=== PATIENT | female | born 1995 ===

== ENCOUNTER 2016-09-23 11:08 | Inpatient (IN) | payer OTHER ==
--- NOTE | 2016-09-23 11:26 | CP.PCM.HP ---
<Merritt Haynes - Last Filed: 09/23/16 12:25> History of Present Illness - History of Present Illness History of Present Illness: HPI: Patient is a 21 year old female, with PMHx of previous abscess in left axilla ( 2016), who presents to [facility] ED for new abscess formation. Patient saw Dr. Cifuentes at his office this AM and was instructed to come to [facility] for removal today. She admits she noticed both abscesses last week, when they began to collect and become painful. One is located in her left groin, and the other is on the back of her left leg. She admits to pain, swelling, and drainage from the sites. She was prescribed Augmentin, which she started yesterday. She denies fever, chills, abdominal pain, N/V. PMHx: left axilla abscess PSHx: I& D of left axilla abscess (2016) Allergies: denies Fam Hx: Mother - DM, HTN SHx: denies tobacco or illicit drug use, admits occasional social alcohol use; lives with parents Present on Admission - Present on Admission Any Indicators Present on Admission: No Review of Systems - Constitutional Constitutional: absent: Chills, Fever - EENT Eyes: absent: Change in Vision Ears: absent: Decreased Hearing - Cardiovascular Cardiovascular: absent: Chest Pain, Dyspnea - Respiratory Respiratory: absent: Cough - Gastrointestinal Gastrointestinal: absent: Abdominal Pain, Nausea, Vomiting - Genitourinary Genitourinary: absent: Dysuria - Integumentary Integumentary: Erythema, Skin Ulcer (two abscesses; one in left groin, other on back of left leg) - Neurological Neurological: absent: Numbness, Tingling, Weakness Meds Allergies/Adverse Reactions: Allergies Allergy/AdvReac Type Severity Reaction Status Date / Time No Known Allergies Allergy Verified 09/23/16 11:29 Physical Exam - Constitutional Appears: Non-toxic, No Acute Distress - Head Exam Head Exam: ATRAUMATIC, NORMAL INSPECTION, NORMOCEPHALIC - Eye Exam Eye Exam: EOMI Pupil Exam: PERRL - ENT Exam ENT Exam: Mucous Membranes Moist - Neck Exam Neck exam: Positive for: Full Rom - Respiratory Exam Respiratory Exam: Clear to Auscultation Bilateral, NORMAL BREATHING PATTERN - Cardiovascular Exam Cardiovascular Exam: REGULAR RHYTHM, +S1, +S2 - GI/Abdominal Exam GI & Abdominal Exam: Normal Bowel Sounds, Soft. absent: Tenderness - Extremities Exam Extremities exam: Negative for: normal inspection, tenderness Additional comments: Abscess noted in left groin, and back of left leg - Back Exam Back exam: absent: CVA tenderness (L), CVA tenderness (R) - Neurological Exam Neurological exam: Alert, Oriented x3 - Psychiatric Exam Psychiatric exam: Normal Affect, Normal Mood - Skin Skin Exam: Normal Color, Warm Results - Labs Result Diagrams: 09/23/16 11:51 09/23/16 11:51 Assessment & Plan - Assessment and Plan (Free Text) Assessment: 21 yo female with PMHx of previous left axillary abscess, presenting for new abscesses in left groin and back of left leg. Plan: Plan: - Pre-op labs - I& D in OR today with Dr. Cifuentes d/w Dr. Vane Haynes, PGY-1 <Sonny Cifuentes B - Last Filed: 09/23/16 21:10> Results - Vital Signs Recent Vital Signs: Last Vital Signs Temp 97.4 F L 09/23/16 19:00 Pulse 79 09/23/16 19:00 Resp 18 09/23/16 19:00 BP 90/63 L 09/23/16 19:00 Pulse Ox 100 09/23/16 19:00 - Labs Result Diagrams: 09/23/16 11:51 09/23/16 11:51 Attending/Attestation - Attestation I have personally seen and examined this patient.: Yes I have fully participated in the care of the patient.: Yes I have reviewed all pertinent clinical information: Yes Notes (Text): 09/23/16 21:08 Pt was seen and examined at bedside on 09/23/16 Agree with above note and assessment Pt with Left groin/inguinal abscess and cellulitis and Left post upper thigh abscess NPO, IVF Consent OR for I & D of Left inguinal abscess and Left thigh abscess Plan d.w pt in detail Risk and benefit explained in detail.
--- NOTE | 2016-09-23 11:56 | C.PDOC ---
History Of Present Illness 21 year old patient is sent to the ER by surgeon for an evaluation of abscess. Patient reports she has an infection to her left leg. She was sent to the ED for admission for drainage of the abscess. The surgical team is at bedside upon patient's arrival. Patient will be taken to the OR. Pre-op labs are requested. Patient denies fever or any other complaints at this time. Time Seen by Provider: 09/23/16 11:25 Chief Complaint (Nursing): Abnormal Skin Integrity History Per: Patient History/Exam Limitations: no limitations Onset/Duration Of Symptoms: Other Current Symptoms Are (Timing): Still Present Quality Of Symptoms: Painful, Other Severity: Mild Pain Scale Rating Of: 3 Recent travel outside of the [place]: No Past Medical History Reviewed: Historical Data, Nursing Documentation, Vital Signs Vital Signs: Last Vital Signs Temp 98.8 F 09/23/16 11:25 Pulse 78 09/23/16 12:33 Resp 15 09/23/16 12:33 BP 126/68 09/23/16 12:33 Pulse Ox 100 09/23/16 12:33 Family History: States: Unknown Family Hx - Social History Hx Alcohol Use: Yes Hx Substance Use: No - Immunization History Hx Tetanus Toxoid Vaccination: No Hx Influenza Vaccination: Yes Hx Pneumococcal Vaccination: No Review Of Systems Except As Marked, All Systems Reviewed And Found Negative. Constitutional: Negative for: Fever Skin: Positive for: Other (abscess to left leg) Physical Exam - Physical Exam Appears: Non-toxic, No Acute Distress Skin: Warm, Dry Head: Atraumatic, Normacephalic, Other (left upper leg swelling and erythema with induration and fluctuance) Neck: Normal ROM, Supple Chest: Symmetrical Cardiovascular: Rhythm Regular (tachycardic) Respiratory: Normal Breath Sounds, No Rales, No Rhonchi, No Wheezing Back: Normal Inspection Extremity: Normal ROM Neurological/Psych: Oriented x3, Normal Motor, Normal Sensation Gait: Steady ED Course And Treatment - Laboratory Results Result Diagrams: 09/23/16 11:51 09/23/16 11:51 O2 Sat by Pulse Oximetry: 96 (room air) Pulse Ox Interpretation: Normal Medical Decision Making Medical Decision Making: Impression: 21 y/o female with an abscess to upper left extremity Plan: * Labs Disposition - Disposition Disposition: HOSPITALIZED Disposition Time: 12:59 Condition: STABLE - Clinical Impression Clinical Impression: Abscess - Scribe Statement The provider has reviewed the documentation as recorded by the Scribe Indu Shen Provider Attestation: All medical record entries made by the Scribe were at my direction and personally dictated by me. I have reviewed the chart and agree that the record accurately reflects my personal performance of the history, physical exam, medical decision making, and the department course for this patient. I have also personally directed, reviewed, and agree with the discharge instructions and disposition.
[2016-09-23 11:58] LABS: BASO % 0.4 % (0.0-2.0); EOS # 0.2 K/uL (0.0-0.7); EOS % 1.3 % (0.0-4.0); HEMATOCRIT 36.2 % (34.0-47.0); LYMPH # 1.8 K/uL (1.0-4.3); LYMPH % 14.4 % (20.0-40.0); MEAN CELL VOLUME 89.9 fL (81.0-99.0); MEAN CORPUSCULAR HEMOGLOBIN 30.8 pg (27.0-31.0); MEAN CORPUSCULAR HGB CONC 34.2 g/dL (33.0-37.0); MEAN PLATELET VOLUME 7.6 fL (7.2-11.7); MONO # 0.9 K/uL (0.0-0.8); RED CELL DISTRIBUTION WIDTH 12.2 % (11.5-14.5); WHITE BLOOD COUNT 12.5 K/uL (4.8-10.8)
[2016-09-23 12:05] LABS: INR 1.2
[2016-09-23 12:08] LABS: CHLORIDE 97 mmol/L (98-107); POTASSIUM 4.3 mmol/L (3.6-5.2); SODIUM 138 mmol/L (132-148)
[2016-09-23 12:10] LABS: BILIRUBIN,TOTAL 0.8 mg/dL (0.2-1.3); GFR AFRICAN-AMERICAN > 60
[2016-09-23 12:11] LABS: ALB/GLOB RATIO 1.2 (1.0-2.1); ALKALINE PHOSPHATASE 59 U/L (38-126); ALT/SGPT 20 U/L (9-52); AST/SGOT 24 U/L (14-36); BLOOD UREA NITROGEN 14 mg/dL (7-17); CARBON DIOXIDE 27 mmol/L (22-30); GLUCOSE,RANDOM 112 mg/dL (65-105); TOTAL PROTEIN 8.4 g/dL (6.3-8.3)
[2016-09-23] MEDS ORDERED: Bupivacaine/Epi 0.25%-1:200,000 10 ml PF inj IJ ONE (13:58)
[2016-09-23] MEDS ORDERED: Lidocaine 1% Inj (20ml) ONE (13:58)
[2016-09-23] MEDS ORDERED: ceFAZolin IV 1 gm in Dextrose 0 GM/0 ML BAG IVPB ONE (13:58)
[2016-09-23] MEDS ORDERED: Vancomycin 1 gm/D5W 200 ml 1 GM/200 ML BAG IVPB ONE (14:01)
[2016-09-23] MEDS ORDERED: Lactated Ringer's 1,000 ML IV ONE ×2 (14:03)
[2016-09-23] MEDS ORDERED: Propofol 10 mg/ml Inj (20 ML) ONE (14:04)
[2016-09-23] MEDS ORDERED: Midazolam 2 MG/2 ML VIAL ONE (14:04)
[2016-09-23] MEDS ORDERED: Lidocaine Hydrochloride 5 ML INJ ONE (14:09)
[2016-09-23] MEDS: Piperacillin/Tazobact 3.375 gm 100 ML IVPB ONE ×2 (14:34→14:45)
[2016-09-23] MEDS ORDERED: HYDROmorphone 0.5 mg/0.5 ml ISec IVP PRN (14:47)
--- NOTE | 2016-09-23 15:03 | PCM.SURG1 ---
Surgeon's Initial Post Op Note - Surgeon's Notes Surgeon: Vane Supervisor Filling And Packing: Nena PGY2 Type of Anesthesia: General LMA Pre-Operative Diagnosis: L thigh and groin abscess Operative Findings: same Post-Operative Diagnosis: same Operation Performed: Incision and Drainange of abscess Specimen/Specimens Removed: cultures Estimated Blood Loss: EBL {In ML}: 20 Blood Products Given: N/A Drains Used: No Drains Post-Op Condition: Good Date of Surgery/Procedure: 09/23/16 Time of Surgery/Procedure: 15:03
[2016-09-23] MEDS ORDERED: Sodium Chloride 0.9% 1,000 ML IV SCH (15:15)
[2016-09-23] MEDS ORDERED: HYDROmorphone 0.5 mg/0.5 ml ISec IVP ONE (16:05)
--- NOTE | 2016-09-23 19:31 | OP ---
PROCEDURE DATE: 09/23/2016 PREOPERATIVE DIAGNOSIS: Left groin abscess and left upper posterior thigh abscess. POSTOPERATIVE DIAGNOSIS: Left groin abscess and left upper posterior thigh abscess. PROCEDURE DONE: 1. Incision and drainage of left inguinal region abscess. 2. Excision and debridement of left inguinal abscess wound. 3. Incision and drainage of left posterior upper thigh abscess. 4. Excision and debridement of left Posterior upper thigh wound. SURGEON: Sonny Cifuentes MD. FIELD SCOUT: Serjio Barrett MD ANESTHESIA: General anesthesia with LMA. ESTIMATED BLOOD LOSS: Around 10 mL. DRAINS: None. PATHOLOGY: Pus was sent for the culture and sensitivity from the left inguinal as well as the left thigh abscess and debrided tissue was also sent from the left inguinal abscess wound. INTRAOPERATIVE FINDINGS: The patient had approximately 4 x 5 cm abscess of the left inguinal area with extensive cellulitis and the patient had approximately 3 x 4 cm left upper thigh posterior abscess with necrotic tissue. INTRAOPERATIVE STEPS: This 21-year-old female who was diagnosed with left inguinal area cellulitis and abscess as well as the left posterior upper thigh abscess and patient was consented for incision and drainage and patient was brought to the OR, placed supine on the operating table. After induction of the anesthesia, the patient's leg was placed in a frog leg position and the left inguinal area as well as the left upper posterior medial thigh was prepped and draped in the usual sterile fashion. First, a transverse incision was made of approximately 4 cm in the left inguinal area and approximately 20 mL of pus was drained and the abscess cavity was debrided and all the debrided tissue was sent for pathology. The debridement was done with a knife and the cautery as well as blunt debridement and after proper hemostasis, the left posterior upper thigh incision was made and approximately 10 mL of pus was drained and the pus was sent for culture and sensitivity. The wound was debrided and necrotic tissue was sent for the pathology. After proper hemostasis, the wound was also packed with iodoform packing and dry sterile dressing was applied. Left inguinal wound was also packed with iodoform packing and after proper hemostasis , the dry sterile dressing was applied. The patient tolerated the procedure well. Count of instruments and gauze was correct. There was no apparent complication. Sonny Cifuentes MD cc: [id number] TT: 09/23/2016 19:31:05 jn ARIANE
[2016-09-23] MEDS: Oxycodone/Acetaminophen 5/325 mg Tab PO PRN (21:00)
[2016-09-23] MEDS: Piperacillin/Tazobact 3.375 GM in Sodium Chloride 100 ML IVPB SCH (21:41)
[2016-09-24] MEDS: Vancomycin 1 gm/NS 200 ml 1 GM/200 ML BAG IVPB SCH ×2 (01:03→13:09)
[2016-09-24 02:23] VITALS: RESP 20; O2SAT 98
[2016-09-24] MEDS: Piperacillin/Tazobact 3.375 GM in Sodium Chloride 100 ML IVPB SCH ×3 (03:45→14:56)
[2016-09-24] MEDS: Oxycodone/Acetaminophen 5/325 mg Tab PO PRN ×2 (04:04→11:16)
[2016-09-24] MEDS ORDERED: Morphine 4 MG/ML VIAL IVP STA (06:19)
[2016-09-24 07:26] LABS: HEMATOCRIT 32.6 % (34.0-47.0); MEAN CELL VOLUME 90.4 fL (81.0-99.0); MEAN CORPUSCULAR HEMOGLOBIN 30.6 pg (27.0-31.0); MEAN CORPUSCULAR HGB CONC 33.9 g/dL (33.0-37.0); MEAN PLATELET VOLUME 7.7 fL (7.2-11.7); RED CELL DISTRIBUTION WIDTH 12.3 % (11.5-14.5)
[2016-09-24 08:07] VITALS: BP 98/66; PULSE 91; TEMP 97.6
--- NOTE | 2016-09-24 10:17 | CP.PCM.PN ---
Objective - Vital Signs/Intake and Output Vital Signs (last 24 hours): Temp Pulse Resp BP Pulse Ox 97.6 F 91 H 20 98/66 L 98 09/24/16 08:02 09/24/16 08:02 09/24/16 08:02 09/24/16 08:02 09/24/16 08:02 - Medications Medications: Current Medications Acetaminophen (Tylenol 325mg Tab) 650 mg PO Q6 PRN PRN Reason: Fever >100.4 F Piperacillin Sod/Tazobactam (Sod 3.375 gm/ Sodium Chloride) 100 mls @ 200 mls/ hr IVPB Q6H [facility] Last Admin: 09/24/16 09:22 Dose: 200 mls/hr Vancomycin/Sodium Chloride (Vancocin) 1 gm in 200 mls @ 133.333 mls/hr IVPB Q12H [facility] Stop: 09/29/16 02:01 Last Admin: 09/24/16 01:03 Dose: 133.333 mls/hr Ondansetron HCl (Zofran Inj) 4 mg IVP Q4 PRN PRN Reason: Nausea/Vomiting Oxycodone/Acetaminophen (Percocet 5/325 Mg Tab) 1 tab PO Q6H PRN PRN Reason: Pain, moderate (4-7) Stop: 09/26/16 15:10 Last Admin: 09/24/16 04:04 Dose: 1 tab - Labs Labs: 09/24/16 07:09 PT 13.6 SECONDS (9.7-12.2) H 09/23/16 11:51 INR 1.2 09/23/16 11:51 APTT 29 SECONDS (21-34) 09/23/16 11:51
--- NOTE | 2016-09-24 10:55 | CP.PCM.PCO ---
Physician Communication Note - Physician Communication Note Physician Communication Note: Plan for D/C pending ID input on out pt abx
--- NOTE | 2016-09-24 12:04 | CP.PCM.CON ---
History of Present Illness - History of Present Illness History of Present Illness: 21 year old female, with PMHx of previous abscess in left axilla (2016), who presents to [facility] ED for new abscess formation. Patient saw Dr. Cifuentes at his office this AM and was instructed to come to [facility] for removal today. She admits she noticed both abscesses last week, when they began to collect and become painful. One is located in her left groin, and the other is on the back of her left leg. She admits to pain, swelling, and drainage from the sites. She was prescribed Augmentin, but failed out pt rx PMHx: left axilla abscess PSHx: I& D of left axilla abscess (2016) Allergies: denies Fam Hx: Mother - DM, HTN SHx: denies tobacco or illicit drug use, admits occasional social alcohol use; lives with parents Review of Systems - Constitutional Constitutional: absent: As Per HPI, Anorexia, Chills, Daytime Sleepiness, Excessive Sweating, Fatigue, Fever, Frequent Falls, Headache, Increased Appetite , Lethargy, Malaise, Night Sweats, Snoring, Sleep Apnea, Weight Gain, Weight Loss, Weakness, Other - EENT Eyes: absent: As Per HPI, Blind Spots, Blurred Vision, Change in Vision, Decreased Night Vision, Diplopia, Discharge, Dry Eye, Exophthalmos, Floaters, Irritation, Itchy Eyes, Loss of Peripheral Vision, Pain, Photophobia, Requires Corrective Lenses, Sees Flashes, Spots in Vision, Tunnel Vision, Other Visual Disturbances, Loss of Vision, Other Ears: absent: As Per HPI, Decreased Hearing, Ear Discharge, Ear Pain, Tinnitus, Abnormal Hearing, Disequilibrium, Dizziness, Other Nose/Mouth/Throat: absent: As Per HPI, Epistaxis, Nasal Congestion, Nasal Discharge, Nasal Obstruction, Nasal Trauma, Nose Pain, Post Nasal Drip, Sinus Pain, Sinus Pressure, Bleeding Gums, Change in Voice, Dental Pain, Dry Mouth, Dysphagia, Halitosis, Hoarsness, Lip Swelling, Mouth Lesions, Mouth Pain, Odynophagia, Sore Throat, Throat Swelling, Tongue Swelling, Facial Pain, Neck Pain, Neck Mass, Other - Cardiovascular Cardiovascular: absent: As Per HPI, Acrocyanosis, Chest Pain, Chest Pain at Rest , Chest Pain with Activity, Claudication, Diaphoresis, Dyspnea, Dyspnea on Exertion, Edema, Irregular Heart Rhythm, Pain Radiating to Arm/Neck/Jaw, Leg Edema, Leg Ulcers, Lightheadedness, Orthopnea, Palpitations, Paroxysmal Nocturnal Dyspnea, Pedal Edema, Radiating Pain, Rapid Heart Rate, Slow Heart Rate, Syncope, Other - Respiratory Respiratory: absent: As Per HPI, Cough, Dyspnea, Hemoptysis, Dyspnea on Exertion , Wheezing, Snoring, Stridor, Pain on Inspiration, Chest Congestion, Excessive Mucous Production, Change in Mucous Color, Pain with Coughing, Other - Gastrointestinal Gastrointestinal: absent: As Per HPI, Abdominal Pain, Belching, Bloating, Change in Bowel Habits, Change in Stool Character, Coffee Ground Emesis, Constipation, Cramping, Diarrhea, Dyspepsia, Dysphagia, Early Satiety, Excessive Flatus, Fecal Incontinence, Heartburn, Hematemesis, Hematochezia, Loose Stools, Melena, Nausea, Odynophagia, Temesmus, Vomiting, Other - Genitourinary Genitourinary: absent: As Per HPI, Change in Urinary Stream, Difficulty Urinating, Dysuria, Flank Pain, Hematuria, Pyuria, Nocturia, Urinary Incontinence, Urinary Frequency, Urinary Hesitance, Urinary Urgency, Voiding Freq/Small Amts, Freq UTI, Hx Renal/Bladder Calculi, Hx /Renal Surgery, Bladder Distension, Other - Reproductive: Female Reproductive:Female: absent: As Per HPI, Amenorrhea, Amenorrhea/ Control, Currently Menstual, Cycle <21 Days, Cycle >35 Days, Cycle Variable, Menses 1-7 Days, Menses >/= 8 Days, Menses Variable, Cycle > 4 Weeks Between, No Menses for 6 Months, Heavy Menses, Light Menses, Normal Menses, Spotting Between Cycles , S/P Hysterectomy, Menopausal, Post Menopausal, Premenarche, Abnormal Vaginal Bleeding, Dysmenorrhea, Dyspareunia, Genital Lesions, Genital Pruritis, Pelvic Pain, Prolapse Symptoms, Sexual Dysfunction, Vaginal Discharge, Vaginal Dryness , Vaginal Odor, Vaginal Pruritis, Other - Menstruation Menstruation: absent: As Per HPI, Amenorrhea, Amenorrhea/ Control, Currently Menstual, Cycle <21 Days, Cycle >35 Days, Cycle Variable, Menses 1-7 Days, Menses >/= 8 Days, Menses Variable, Cycle > 4 Weeks Between, No Menses for 6 Months, Heavy Menses, Light Menses, Normal Menses, Spotting Between Cycles , S/P Hysterectomy, Menopausal, Post Menopausal, Premenarche, Abnormal Vaginal Bleeding, Dysmenorrhea, Other - Musculoskeletal Musculoskeletal: absent: As Per HPI, Abnormal Gait, Arthralgias, Atrophy, Back Pain, Deformity, Joint Swelling, Limited Range of Motion, Loss of Height, Muscle Cramps, Muscle Weakness, Myalgias, Neck Pain, Numbness, Radiating Pain into Limb, Stiffness, Tingling, Other - Integumentary Integumentary: As Per HPI - Neurological Neurological: absent: As Per HPI, Abnormal Gait, Abnormal Hearing, Abnormal Movements, Abnormal Speech, Behavioral Changes, Burning Sensations, Confusion, Convulsions, Disequilibrium, Dizziness, Numbness, Focal Weakness, Frequent Falls , Headaches, Lack of Coordination, Loss of Vision, Memory Loss, Paresthesias, Radicular Pain, Restless Legs, Sensory Deficit, Syncope, Tingling, Tremor, Vertigo, Weakness, Other Visual Disturbances, Other - Psychiatric Psychiatric: absent: As Per HPI, Abnormal Sleep Pattern, Anhedonia, Anxiety, Auditory Hallucinations, Behavioral Changes, Change in Appetite, Change in Libido, Confusion, Depression, Difficulty Concentrating, Hallucinations, Homicidal Ideation, Hopelessness, Irritability, Memory Loss, Mood Swings, Panic Attacks, Paranoia, Suicidal Ideation, Visual Hallucinations, Tactile Hallucinations, Other - Endocrine Endocrine: absent: As Per HPI, Change in Body Appearance, Change in Libido, Cold Intolorance, Deepening of Voice, Excessive Sweating, Fatigue, Flushing, Heat Intolorance, Increase in Ring/Shoe/Hat Size, Palpitations, Polydipsia, Polyphagia, Polyuria, Other - Hematologic/Lymphatic Hematologic: absent: As Per HPI, Easy Bleeding, Easy Bruising, Lymphadenopathy, Other Past Patient History - Past Medical History & Family History Past Medical History?: No - Past Social History Smoking Status: Never Smoked - MUSCULOSKELETAL/RHEUMATOLOGICAL Hx Falls: No - PSYCHIATRIC Hx Substance Use: No - SURGICAL HISTORY Hx Surgeries: No - ANESTHESIA Hx Anesthesia: Yes Hx Anesthesia Reactions: No Meds Allergies/Adverse Reactions: Allergies Allergy/AdvReac Type Severity Reaction Status Date / Time No Known Allergies Allergy Verified 09/23/16 11:29 - Medications Medications: Current Medications Acetaminophen (Tylenol 325mg Tab) 650 mg PO Q6 PRN PRN Reason: Fever >100.4 F Piperacillin Sod/Tazobactam (Sod 3.375 gm/ Sodium Chloride) 100 mls @ 200 mls/ hr IVPB [facility]H [facility] Last Admin: 09/24/16 09:22 Dose: 200 mls/hr Vancomycin/Sodium Chloride (Vancocin) 1 gm in 200 mls @ 133.333 mls/hr IVPB Q12H [facility] Stop: 09/29/16 02:01 Last Admin: 09/24/16 01:03 Dose: 133.333 mls/hr Ondansetron HCl (Zofran Inj) 4 mg IVP Q4 PRN PRN Reason: Nausea/Vomiting Oxycodone/Acetaminophen (Percocet 5/325 Mg Tab) 1 tab PO Q6H PRN PRN Reason: Pain, moderate (4-7) Stop: 09/26/16 15:10 Last Admin: 09/24/16 11:16 Dose: 1 tab Physical Exam - Constitutional Appears: Non-toxic, Chronically Ill - Head Exam Head Exam: NORMOCEPHALIC - Eye Exam Eye Exam: PERRL. absent: Scleral icterus - ENT Exam ENT Exam: Mucous Membranes Dry, Normal External Ear Exam - Neck Exam Neck exam: Negative for: Lymphadenopathy - Respiratory Exam Respiratory Exam: Decreased Breath Sounds, Clear to Auscultation Bilateral - Cardiovascular Exam Cardiovascular Exam: REGULAR RHYTHM, +S1, +S2 - GI/Abdominal Exam GI & Abdominal Exam: Diminished Bowel Sounds, Soft. absent: Tenderness - Rectal Exam Rectal Exam: Deferred - Exam Exam: NORMAL INSPECTION - Extremities Exam Extremities exam: Positive for: pedal pulses present. Negative for: calf tenderness, pedal edema, tenderness - Back Exam Back exam: absent: CVA tenderness (L), CVA tenderness (R), paraspinal tenderness - Neurological Exam Neurological exam: Alert, CN II-XII Intact, Oriented x3, Reflexes Normal - Psychiatric Exam Psychiatric exam: Normal Mood - Skin Skin Exam: Dry Additional comments: multiple lesions left axilla, left thigh and groin Tender warm drains in place Results - Vital Signs Recent Vital Signs: Last Vital Signs Temp 97.6 F 09/24/16 08:02 Pulse 91 H 09/24/16 08:02 Resp 20 09/24/16 08:02 BP 98/66 L 09/24/16 08:02 Pulse Ox 98 09/24/16 08:02 - Labs Result Diagrams: 09/24/16 07:09 09/23/16 11:51 Labs: Laboratory Results - last 24 hr 09/24/16 07:09 WBC 12.0 H RBC 3.61 L Hgb 11.1 Hct 32.6 L MCV 90.4 MCH 30.6 MCHC 33.9 RDW 12.3 Plt Count 290 MPV 7.7 Assessment & Plan (1) Abscess Status: Acute - Assessment and Plan (Free Text) Assessment: 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
--- NOTE | 2016-09-24 15:19 | CP.PCM.DIS ---
Provider - Provider Date of Admission: 09/23/16 15:31 Attending physician: Sonny Cifuentes MD Consults: Dr. Duncan, Infectious Disease Time Spent in preparation of Discharge (in minutes): 30 Diagnosis - Discharge Diagnosis (1) Abscess Status: Acute Hospital Course - Lab Results Lab Results: Micro Results 09/23/16 Unknown Groin Gram Stain - Final 09/23/16 Unknown Groin Wound Culture - Preliminary Staphylococcus Aureus 09/23/16 Unknown Thigh - Left Gram Stain - Final 09/23/16 Unknown Thigh - Left Wound Culture - Preliminary Staphylococcus Aureus Most Recent Lab Values WBC 12.0 K/uL (4.8-10.8) H 09/24/16 07:09 RBC 3.61 Mil/uL (3.80-5.20) L 09/24/16 07:09 Hgb 11.1 g/dL (11.0-16.0) 09/24/16 07:09 Hct 32.6 % (34.0-47.0) L 09/24/16 07:09 MCV 90.4 fL (81.0-99.0) 09/24/16 07:09 MCH 30.6 pg (27.0-31.0) 09/24/16 07:09 MCHC 33.9 g/dL (33.0-37.0) 09/24/16 07:09 RDW 12.3 % (11.5-14.5) 09/24/16 07:09 Plt Count 290 K/uL (130-400) 09/24/16 07:09 MPV 7.7 fL (7.2-11.7) 09/24/16 07:09 Neut % (Auto) 76.9 % (50.0-75.0) H 09/23/16 11:51 Lymph % (Auto) 14.4 % (20.0-40.0) L 09/23/16 11:51 Posey % (Auto) 7.0 % (0.0-10.0) 09/23/16 11:51 Eos % (Auto) 1.3 % (0.0-4.0) 09/23/16 11:51 Baso % (Auto) 0.4 % (0.0-2.0) 09/23/16 11:51 Neut # 9.6 K/uL (1.8-7.0) H 09/23/16 11:51 Lymph # 1.8 K/uL (1.0-4.3) 09/23/16 11:51 Posey # 0.9 K/uL (0.0-0.8) H 09/23/16 11:51 Eos # 0.2 K/uL (0.0-0.7) 09/23/16 11:51 Baso # 0.0 K/uL (0.0-0.2) 09/23/16 11:51 PT 13.6 SECONDS (9.7-12.2) H 09/23/16 11:51 INR 1.2 09/23/16 11:51 APTT 29 SECONDS (21-34) 09/23/16 11:51 Sodium 138 mmol/L (132-148) 09/23/16 11:51 Potassium 4.3 mmol/L (3.6-5.2) 09/23/16 11:51 Chloride 97 mmol/L (98-107) L 09/23/16 11:51 Carbon Dioxide 27 mmol/L (22-30) 09/23/16 11:51 Anion Gap 17 (10-20) 09/23/16 11:51 BUN 14 mg/dL (7-17) 09/23/16 11:51 Creatinine 0.6 MG/DL (0.7-1.2) L 09/23/16 11:51 Est GFR ( Amer) > 60 09/23/16 11:51 Est GFR (Non-Af Amer) > 60 09/23/16 11:51 Random Glucose 112 mg/dL (65-105) H 09/23/16 11:51 Calcium 9.0 mg/dl (8.6-10.4) 09/23/16 11:51 Total Bilirubin 0.8 mg/dL (0.2-1.3) 09/23/16 11:51 AST 24 U/L (14-36) 09/23/16 11:51 ALT 20 U/L (9-52) 09/23/16 11:51 Alkaline Phosphatase 59 U/L (38-126) 09/23/16 11:51 Total Protein 8.4 g/dL (6.3-8.3) H 09/23/16 11:51 Albumin 4.5 g/dL (3.5-5.0) 09/23/16 11:51 Globulin 3.9 gm/dL (2.2-3.9) 09/23/16 11:51 Albumin/Globulin Ratio 1.2 (1.0-2.1) 09/23/16 11:51 Urine HCG, Qual Negative (NEGATIVE) 09/23/16 12:32 Blood Type B POSITIVE 09/23/16 11:51 Antibody Screen Positive 09/23/16 11:51 Antibody Identification Non Specific Antibody 09/23/16 11:51 - Hospital Course Hospital Course: 21F presented to ED w. abscess to L groin and posterior L thigh. Pt went to OR for ID and was started on IV abx. Post-op pt did well. WBC trending down. Pain controlled. No F/C. Clear for D/C from surgical standpoint. Discharge Exam - Head Exam Head Exam: ATRAUMATIC, NORMOCEPHALIC - Eye Exam Eye Exam: EOMI. absent: Scleral icterus - ENT Exam ENT Exam: Mucous Membranes Moist, Normal External Ear Exam - Neck Exam Neck exam: Full Rom - Respiratory Exam Respiratory Exam: NORMAL BREATHING PATTERN. absent: Accessory Muscle Use, Respiratory Distress - GI/Abdominal Exam GI & Abdominal Exam: Soft. absent: Tenderness - Extremities Exam Extremities exam: normal inspection - Neurological Exam Neurological exam: Alert, Oriented x3 - Skin Additional comments: L groin and posterior L thigh, s/p ID, no drainage, no erythema, tender to palpation, + induration, no fluctuance Discharge Plan - Discharge Medications Prescriptions: Clindamycin [Cleocin] 300 mg PO Q8 #21 cap - Follow Up Plan Condition: STABLE Disposition: HOME/ ROUTINE Patient education suggested?: Yes Instructions: Clindamycin (By mouth), Acute Wound Care (DC), Abscess (GEN), Incision and Drainage (DC) Additional Instructions: Follow up in office on 09/26/16. Call office for appointment. Packing to be changed in office. Referrals: Sonny Cifuentes MD [Staff Provider] -
[2016-09-24] MEDS ORDERED: Piperacillin/Tazobact 3.375 GM in Sodium Chloride 0.9% 100 ML IVPB SCH (21:00)
== END 2016-09-24 15:45 | disposition home or self-care (01) | DRG 571 ==
LOC: C.6T 11:08 → C.ER 11:08 → C.SDS 12:31 → C.9S 15:31 → C.6T 18:45
PROVIDERS: ADMIT Surgery Surgical Critical Care; ATTEND Surgery Surgical Critical Care
PROC: 0HB8XZZ Excision of Buttock Skin, External Approach (ICD-10-PCS; 2016-09-23)
PROC: 0HBJXZZ Excision of Left Upper Leg Skin, External Approach (ICD-10-PCS; principal; 2016-09-23 15:15)
DX: L03.116 Cellulitis of left lower limb (principal); L03.314 Cellulitis of groin; B95.62 Methicillin resistant Staphylococcus aureus infection as the cause of diseases classified elsewhere

== ENCOUNTER 2016-09-28 11:00 | Emergency (ER) | payer OTHER ==
[2016-09-28 11:08] VITALS: BMI 26.1
--- NOTE | 2016-09-28 11:42 | C.PDOC ---
History Of Present Illness The patient, a 21 y/o female, presents to the ED accompanied by mother for evaluation of wound check. Patient underwent I&D of an abscess by Dr. Cifuentes around 5 days ago. As per mother, patient was scheduled by Dr. Cifuentes for a wound check and packing change in the ED. Patient admits she has been taking antibiotics as prescribed. She denies fever, chills, increased wound pain, swelling, redness, or significant discharge from wound site. Time Seen by Provider: 09/28/16 11:24 Chief Complaint (Nursing): Wound Check History Per: Patient, Family (mother ) History/Exam Limitations: no limitations Onset/Duration Of Symptoms: Days Ago (5) Current Symptoms Are (Timing): Better Quality Of Symptoms: denies: Painful, Itching, Swollen, Draining Additional History Per: Patient, Family Past Medical History Reviewed: Historical Data, Nursing Documentation, Vital Signs Vital Signs: Last Vital Signs Temp 98.4 F 09/28/16 11:15 Pulse 86 09/28/16 11:15 Resp 18 09/28/16 11:15 BP 116/57 L 09/28/16 11:15 Pulse Ox 98 09/28/16 12:33 - Medical History PMH: No Chronic Diseases Surgical History: No Surg Hx - [facility] Procedures EXCISION OF BUTTOCK SKIN, EXTERNAL APPROACH (09/23/16) EXCISION OF LEFT UPPER LEG SKIN, EXTERNAL APPROACH (09/23/16) Family History: States: Unknown Family Hx - Social History Hx Alcohol Use: Yes Hx Substance Use: No - Immunization History Hx Tetanus Toxoid Vaccination: No Hx Influenza Vaccination: Yes Hx Pneumococcal Vaccination: No Review Of Systems Except As Marked, All Systems Reviewed And Found Negative. Constitutional: Negative for: Fever, Chills Skin: Positive for: Other (+wound check s/p abscess I&D. no swelling, redness, or significant discharge ) Physical Exam - Physical Exam Appears: Well, Non-toxic, No Acute Distress Skin: Normal Color, Warm, Other (Left groin: area of edema, erythema, central open wound with packing inserted, mild draining noted. NO flactulance.) Gastrointestinal/Abdominal: Normal Exam, Soft, No Tenderness, No Distention, No Guarding Extremity: Normal ROM, No Tenderness, No Pedal Edema, No Swelling Neurological/Psych: Oriented x3, Normal Speech ED Course And Treatment O2 Sat by Pulse Oximetry: 98 (on RA) Pulse Ox Interpretation: Normal Progress Note: Surgical residents was called and evaluated patient per surgery request. Wound cleaned and dressing changes by surgical assistant certified. Pt and family was instructed by surgical assistant certified for wound carea nd further F/ u with Dr. Cifuentes . Pt is afebrile, hemodynamicaly stable,. Non-toxic. AMbulatory in ED. Pt is stable for discharge and outpt f/u now. Disposition Counseled Patient/Family Regarding: Diagnosis, Need For Followup - Disposition Referrals: Sonny Cifuentes MD [Staff Provider] - Disposition: HOME/ ROUTINE Disposition Time: 11:45 Condition: STABLE Additional Instructions: Follow the instruction given by surgery for wound care Follow up with Surgery in 2 days for wound re-evaluation and further treatment. Return to ED if any worsening or new changes. Instructions: Abscess Incision and Drainage (ED) - Clinical Impression Clinical Impression: Wound check, abscess - PA / HAZARDOUS MATERIAL SPECIALIST / Resident Statement MD/DO has reviewed & agrees with the documentation as recorded. - Scribe Statement The provider has reviewed the documentation as recorded by the Scribe (Lou Shen) All medical record entries made by the Scribe were at my direction and personally dictated by me. I have reviewed the chart and agree that the record accurately reflects my personal performance of the history, physical exam, medical decision making, and the department course for this patient. I have also personally directed, reviewed, and agree with the discharge instructions and disposition.
[2016-09-28 11:51] VITALS: BP 116/57; PULSE 86; RESP 18; TEMP 98.4; O2SAT 98
== END 2016-09-28 11:50 | disposition home or self-care (01) ==
LOC: C.ER 11:00
DX: Z51.89 Encounter for other specified aftercare (principal)